=== PATIENT | female | born 1980 | race Caucasian/White ===

== ENCOUNTER 2017-04-23 21:57 | Emergency (ER) | payer BC, MEDICAID ==
[2017-04-23] MEDS ORDERED: Ketorolac 30 MG/ML SDV IVPUSH ONE (22:07)
[2017-04-23] MEDS ORDERED: Sodium Chloride 0.9% 1,000 ML IV ONE (22:08)
[2017-04-23] MEDS ORDERED: HYDROmorphone 1 MG/ML Syringe IVPUSH ONE (22:18)
[2017-04-23] MEDS ORDERED: Ondansetron 4 MG/2 ML SDV IVPUSH ONE (22:18)
--- NOTE | 2017-04-23 22:23 | EDM.PDOC ---
ED HPI GENERAL MEDICAL PROBLEM - General Chief Complaint: Abdominal Pain Stated Complaint: ABDOMINAL PAIN Time Seen by Provider: 04/23/17 22:17 Source of Information: Reports: Patient History Limitations: Reports: No Limitations - History of Present Illness INITIAL COMMENTS - FREE TEXT/NARRATIVE: Patient is a 37-year-old female who presents with lower abdominal pain 1 hour. She states she has a history of ovarian cysts and the symptoms happen quite often after her menses. Menses was 10 days ago. She states she had a previous tubal ligation. Abdominal pain is described as cramping. Denies fever, vaginal bleeding or discharge, nausea, vomiting, diarrhea, dysuria, or blood in stool. Onset: Today, Sudden Onset Date: 04/23/17 Onset Time: 21:30 Location: Reports: Abdomen Quality: Reports: Other (cramping) Severity: Moderate Improves with: Reports: None Worsens with: Reports: None Associated Symptoms: Reports: No Other Symptoms - Related Data Allergies Allergy/AdvReac Type Severity Reaction Status Date / Time No Known Drug Allergies Allergy none Verified 04/23/17 22:06 Home Meds: Home Meds . [No Known Home Meds] 04/23/17 [History] ED ROS GENERAL - Review of Systems Review Of Systems: ROS reveals no pertinent complaints other than HPI. Constitutional: Reports: No Symptoms HEENT: Reports: No Symptoms Respiratory: Reports: No Symptoms Cardiovascular: Reports: No Symptoms Endocrine: Reports: No Symptoms GI/Abdominal: Reports: Abdominal Pain. Denies: Bloody Stool, Constipation, Nausea, Vomiting : Reports: No Symptoms Musculoskeletal: Reports: No Symptoms Skin: Reports: No Symptoms Neurological: Reports: No Symptoms Psychiatric: Reports: No Symptoms Hematologic/Lymphatic: Reports: No Symptoms Immunologic: Reports: No Symptoms ED EXAM, GI/ABD - Physical Exam Exam: See Below Exam Limited By: No Limitations General Appearance: Alert, WD/WN, Mild Distress Throat/Mouth: Normal Inspection, Normal Oropharynx, No Airway Compromise Head: Atraumatic, Normocephalic Neck: Normal Inspection, Supple Respiratory/Chest: No Respiratory Distress, Lungs Clear, Normal Breath Sounds, No Accessory Muscle Use, Chest Non-Tender Cardiovascular: Regular Rate, Rhythm, No Murmur GI/Abdominal Exam: Normal Bowel Sounds, Soft, Tender (suprapubic) (Female) Exam: Deferred (per pt request) Back Exam: Normal Inspection. No: CVA Tenderness (L), CVA Tenderness (R) Extremities: Normal Inspection, No Pedal Edema Neurological: Alert, Oriented, Normal Cognition Psychiatric: Normal Affect, Normal Mood Skin Exam: Warm, Dry, Intact, Normal Color, No Rash Course - Orders/Labs/Meds Orders: Active Orders 24 hr Category Date Time Status CBC WITH AUTO DIFF [HEME] Stat Lab 04/23/17 22:06 Ordered COMPREHENSIVE METABOLIC PN,CMP [CHEM] Stat Lab 04/23/17 22:06 Ordered HCG QUALITATIVE,URINE [URCHEM] Stat Lab 04/23/17 22:06 Ordered UA W/MICROSCOPIC [URIN] Stat Lab 04/23/17 22:06 Ordered HYDROmorphone [Dilaudid] Med 04/23/17 22:18 Once 1 mg IVPUSH ONETIME ONE Ondansetron [Zofran] Med 04/23/17 22:18 Once 4 mg IVPUSH ONETIME ONE Sodium Chloride 0.9% [Normal Saline] 1,000 ml Med 04/23/17 22:08 Active IV .BOLUS Medication Orders Sodium Chloride (Normal Saline) 1,000 mls @ 999 mls/hr IV .BOLUS ONE Stop: 04/23/17 23:08 Meds: Medications Generic Name Dose Route Start Last Admin Trade Name Freq PRN Reason Stop Dose Admin Sodium Chloride 1,000 mls @ 999 mls/hr 04/23/17 22:08 Normal Saline IV 04/23/17 23:08 .BOLUS ONE Discontinued Medications Generic Name Dose Route Start Last Admin Trade Name Freq PRN Reason Stop Dose Admin Ketorolac Tromethamine 30 mg 04/23/17 22:07 Toradol IVPUSH 04/23/17 22:08 ONETIME ONE - Re-Assessments/Exams Free Text/Narrative Re-Assessment/Exam: 04/23/17 22:51 Patient afebrile, nontoxic appearing, discomfort resolved. Vital signs stable. Discussed need to follow-up with primary or vice president of procurement tomorrow for ultrasound to determine suspicion of ovarian cysts, and consideration of medication. 04/23/17 22:52 Departure - Departure Time of Disposition: 22:52 Disposition: Home, Self-Care 01 Condition: Good Clinical Impression: Abdominal pain Qualifiers: Abdominal location: lower abdomen, unspecified Qualified Code(s): R10.30 - Lower abdominal pain, unspecified - Discharge Information Instructions: Abdominal Pain, Adult, [id number], Ovarian Cyst, [id number] Referrals: Ana Araujo SAWMILL TALLY CLERK [Primary Care Provider] - Forms: ED Department Discharge Additional Instructions: Follow-up with PCP tomorrow, return to ER sooner if symptoms continue or worsen. - My Orders Last 24 Hours: My Active Orders 04/23/17 22:06 CBC WITH AUTO DIFF [HEME] Stat COMPREHENSIVE METABOLIC PN,CMP [CHEM] Stat HCG QUALITATIVE,URINE [URCHEM] Stat UA W/MICROSCOPIC [URIN] Stat 04/23/17 22:08 Sodium Chloride 0.9% [Normal Saline] 1,000 ml IV .BOLUS 04/23/17 22:18 HYDROmorphone [Dilaudid] 1 mg IVPUSH ONETIME ONE Ondansetron [Zofran] 4 mg IVPUSH ONETIME ONE - Assessment/Plan Last 24 Hours: My Active Orders 04/23/17 22:06 CBC WITH AUTO DIFF [HEME] Stat COMPREHENSIVE METABOLIC PN,CMP [CHEM] Stat HCG QUALITATIVE,URINE [URCHEM] Stat UA W/MICROSCOPIC [URIN] Stat 04/23/17 22:08 Sodium Chloride 0.9% [Normal Saline] 1,000 ml IV .BOLUS 04/23/17 22:18 HYDROmorphone [Dilaudid] 1 mg IVPUSH ONETIME ONE Ondansetron [Zofran] 4 mg IVPUSH ONETIME ONE Assessment:: Abdominal pain Plan: Follow-up with the PCP
[2017-04-23 22:42] LABS: CHLORIDE,CL 104 mmol/L (98-115); SODIUM,NA 140 mmol/L (136-145)
[2017-04-23] MEDS ORDERED: Acetaminophen/oxyCODONE 325-5 MG Tab PO ONE (22:50)
== END 2017-04-23 23:05 | disposition home or self-care (01) ==
LOC: KA.ED 21:57
DX: R10.30 Lower abdominal pain, unspecified (principal)
CPT/HCPCS: 80053; 81001; 81025; 85025; 96361; 96374; 99284; A9270; J1885; J7030

== ENCOUNTER 2018-08-04 14:05 | Emergency (ER) | payer BC, MEDICAID ==
[2018-08-04] MEDS ORDERED: Albuterol/Ipratropium 3.0-0.5 MG/3 ML Neb Soln NEB ONE (14:54)
--- NOTE | 2018-08-04 15:00 | EDM.PDOC ---
ED HPI GENERAL MEDICAL PROBLEM - General Chief Complaint: General Stated Complaint: SHORTNESS OF BREATH,COLD/COUGH SYMPTOMS, Time Seen by Provider: 08/04/18 14:41 Source of Information: Reports: Patient History Limitations: Reports: No Limitations - History of Present Illness INITIAL COMMENTS - FREE TEXT/NARRATIVE: Patient presents with cough, dyspnea, headache and malaise that started 3 days ago. It's been pretty constant but worse today. She has been pretty weak and tired also. Not aware of any fever. No history of asthma, chronic bronchitis, asthma or pneumonia. She doesn't smoke. Treatments DIRECTOR CHECK: Reports: Acetaminophen, Other (see below) Other Treatments DIRECTOR CHECK: dayquil, tylenol cold and flu - Related Data Allergies Allergy/AdvReac Type Severity Reaction Status Date / Time No Known Drug Allergies Allergy none Verified 08/04/18 14:22 Home Meds: Home Meds . 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, Polycystic Ovaries, Spontaneous Musculoskeletal History: Reports: Back Pain, Chronic Endocrine/Metabolic History: Reports: Obesity/BMI 30+ - Past Surgical History Female Surgical History: Reports: Tubal Ligation Neurological Surgical History: Reports: Lumbar Spine Social & Family History - Tobacco Use Smoking Status *Q: Former Smoker Used Tobacco, but Quit: Yes Month/Year Tobacco Last Used: quit 2001 Second Hand Smoke Exposure: Yes - Caffeine Use Caffeine Use: Reports: Soda - Alcohol Use Days Per Week of Alcohol Use: 1 Number of Drinks Per Day: 4 Total Drinks Per Week: 4 - Recreational Drug Use Recreational Drug Use: No ED ROS GENERAL - Review of Systems Review Of Systems: See Below Constitutional: Reports: Malaise, Weakness, Fatigue, Decreased Appetite. Denies : Diaphoresis HEENT: Reports: Throat Pain (moderate). Denies: Ear Pain Respiratory: Reports: Shortness of Breath, Cough. Denies: Wheezing Cardiovascular: Denies: Chest Pain, Lightheadedness, Syncope Endocrine: Reports: Fatigue GI/Abdominal: Denies: Abdominal Pain, Constipation, Diarrhea, Nausea, Vomiting : Denies: Dysuria, Flank Pain Musculoskeletal: Reports: No Symptoms Skin: Reports: Rash (A few days ago she had a rash on thighs that responded to benadryl cream and hydrocortisone and is nearly resolved). Denies: Cyanosis, Jaundice, Mottled, Pallor, Diaphoresis Neurological: Denies: Confusion, Dizziness, Headache, Seizure, Syncope, Trouble Speaking, Difficulty Walking, Change in Speech Psychiatric: Denies: Agitation, Anxiety, Confusion ED EXAM, GENERAL - Physical Exam Exam: See Below Exam Limited By: No Limitations General Appearance: Alert, WD/WN, No Apparent Distress Eye Exam: Bilateral Eye: EOMI, Normal Inspection, PERRL Ears: Normal External Exam, Normal Canal, Hearing Grossly Normal, Normal TMs Nose: Normal Inspection, No Blood Throat/Mouth: Normal Inspection, Normal Lips, Normal Oropharynx, Normal Voice, No Airway Compromise Head: Atraumatic, Normocephalic Neck: Normal Inspection, Supple, Non-Tender, Full Range of Motion Respiratory/Chest: No Accessory Muscle Use, Crackles (right lung base). No: Rhonchi, Wheezing, Stridor Cardiovascular: Regular Rate, Rhythm, No Murmur GI/Abdominal: Normal Bowel Sounds, Soft, No Distention Extremities: Normal Inspection, Normal Range of Motion Neurological: Alert, Oriented, Normal Cognition, No Motor/Sensory Deficits Psychiatric: Normal Affect, Normal Mood Skin Exam: Warm, Dry, Intact, Normal Color, No Rash Course - Vital Signs Last Recorded V/S: Last Vital Signs Temp 98.8 F 08/04/18 14:18 Pulse 93 08/04/18 17:26 Resp 28 H 08/04/18 17:26 BP 117/67 08/04/18 17:26 Pulse Ox 93 L 08/04/18 17:26 - Orders/Labs/Meds Orders: Active Orders 24 hr Category Date Time Status RT Aerosol Therapy [RC] ASDIRECTED Care 08/04/18 14:55 Ordered Chest w Cont [CT] Stat Exams 08/04/18 15:28 Ordered CULTURE BLOOD [BC] Stat Lab 08/04/18 17:33 Ordered CULTURE BLOOD [BC] Stat Lab 08/04/18 17:33 Ordered CULTURE STREP A CONFIRMATION [RM] Stat Lab 08/04/18 14:30 Results STREP SCRN A RAPID W CULT CONF [RM] Stat Lab 08/04/18 14:30 Received Blood Culture x2 Reflex Set [OM.PC] Stat Oth 08/04/18 17:33 Ordered Labs: Laboratory Tests 08/04/18 08/04/18 08/04/18 Range/Units 14:40 14:40 14:40 WBC 9.15 (5.00-10.00) 10^3/uL RBC 4.78 (3.80-5.50) 10^6/uL Hgb 13.3 (12.0-16.0) g/dL Hct 40.4 (37.0-47.0) % MCV 84.5 (82.0-92.0) fL MCH 27.8 (27.0-31.0) pg MCHC 32.9 (32.0-36.0) g/dL RDW 14.3 (11.5-14.5) % Plt Count 254 (150-400) 10^3/uL MPV 10.3 (7.4-10.4) fL Immature Gran % (Auto) 0.1 (0.0-5.0) % Neut % (Auto) 77.3 H (50.0-70.0) % Lymph % (Auto) 12.1 L (20.0-40.0) % [facility] % (Auto) 7.0 (2.0-8.0) % Eos % (Auto) 3.4 H (1.0-3.0) % Baso % (Auto) 0.1 (0.0-1.0) % Immature Gran # (Auto) 0.01 (0.00-0.50) 10^3/uL Neut # (Auto) 7.07 H (2.50-7.00) 10^3/uL Lymph # (Auto) 1.11 (1.00-4.00) 10^3/uL [facility] # (Auto) 0.64 (0.10-0.80) 10^3/uL Eos # (Auto) 0.31 H (0.10-0.30) 10^3/uL Baso # (Auto) 0.01 (0.00-0.10) 10^3/uL Sodium 141 (136-145) mmol/L Potassium 3.8 (3.3-5.3) mmol/L Chloride 104 (98-115) mmol/L Carbon Dioxide 27.1 (21.0-32.0) mmol/L Anion Gap 13.7 (5-15) mmol/L BUN 7 (6-25) mg/dL Creatinine 0.87 (0.51-1.17) mg/dL Est Cr Clr Drug Dosing 73.24 mL/min Estimated GFR (MDRD) > 60 mL/min Glucose 96 (75 - 99) mg/dL Lactic Acid 0.7 (0.4-2.0) mmol/L Calcium 8.3 L (8.7-10.3) mg/dL Total Bilirubin 0.5 (0.2-1.0) mg/dL AST 19 (15-37) U/L ALT 30 (12-78) U/L Alkaline Phosphatase 92 (46-116) IU/L C-Reactive Protein 6.3 H (0.0-0.9) mg/dL Total Protein 6.5 (6.4-8.2) g/dL Albumin 3.08 (3.00-4.80) g/dL Meds: Medications Discontinued Medications Generic Name Dose Route Start Last Admin Trade Name Freq PRN Reason Stop Dose Admin Albuterol/Ipratropium 3 ml 08/04/18 14:54 08/04/18 15:28 Duoneb 3.0-0.5 Mg/3 Ml NEB 08/04/18 14:55 3 ml ONETIME ONE Administration - Re-Assessments/Exams Free Text/Narrative Re-Assessment/Exam: 08/04/18 15:38 Influenza and strep tests are negative. WBC is 9.15, ANC 7.07, CRP 6.3. CXR shows bibasilar infiltrates and multiple bilateral pulmonary parenchymal masses or nodules. Also question of bilateral hilar adenopathy. Radiologist recommends CT for further evaluation. 08/04/18 17:40 CT was delayed due to complications with contrast administration. The CT was suboptimal per radiologist and unable to ruleout septic emboli but there is definite severe bilateral extensive upper and lower lob infiltrates with nodular central cavitating components. I discussed this with hospitalist, Dr. Xie, who accepted for transfer and requested that we draw blood cultures before we send patient. He doesn't recommend any antibiotic or blood thinner since she has been stable and slowly progressing over 2-3 days. We discussed ambulance vs riding with her and Dr. Xie feels she is stable and will leave up to me and patient preference. Discussed findings and treatment plan with patient and her . They would like to drive themselves. Patient has been stable throughout ER course. 08/04/18 18:09 Waiting director recreation back from [place] with room placement. I called them and they said they will be calling us shortly. Departure - Departure Time of Disposition: 17:39 Disposition: DC/Tfer to Acute Hospital 02 Condition: Good Clinical Impression: Hypoxemia Bilateral pneumonia Qualifiers: Pneumonia type: due to unspecified organism Lung location: unspecified part of lung Qualified Code(s): J18.9 - Pneumonia, unspecified organism - Discharge Information Referrals: PCP,Not In Area [Primary Care Provider] - Forms: ED Department Discharge - My Orders Last 24 Hours: My Active Orders 08/04/18 14:30 CULTURE STREP A CONFIRMATION [RM] Stat STREP SCRN A RAPID W CULT CONF [RM] Stat 08/04/18 14:55 RT Aerosol Therapy [RC] ASDIRECTED 08/04/18 15:28 Chest w Cont [CT] Stat 08/04/18 17:33 CULTURE BLOOD [BC] Stat CULTURE BLOOD [BC] Stat Blood Culture x2 Reflex Set [OM.PC] Stat - Assessment/Plan Last 24 Hours: My Active Orders 08/04/18 14:30 CULTURE STREP A CONFIRMATION [RM] Stat STREP SCRN A RAPID W CULT CONF [RM] Stat 08/04/18 14:55 RT Aerosol Therapy [RC] ASDIRECTED 08/04/18 15:28 Chest w Cont [CT] Stat 08/04/18 17:33 CULTURE BLOOD [BC] Stat CULTURE BLOOD [BC] Stat Blood Culture x2 Reflex Set [OM.PC] Stat
[2018-08-04 15:11] LABS: ANION GAP 13.7 mmol/L (5-15); CHLORIDE,CL 104 mmol/L (98-115); SODIUM,NA 141 mmol/L (136-145)
--- NOTE | 2018-08-04 15:23 | CR ---
[id number] RAD/RAD Chest PA And Lateral EXAM: RAD Chest PA And Lateral CLINICAL DATA: SHORTNESS OF BREATH COMPARISON: NO PREVIOUS SIMILAR EXAM IS AVAILABLE. FINDINGS: The exam is extremely abnormal. There are bibasilar infiltrates. There are multiple bilateral pulmonary parenchymal masses or nodules. CT chest with IV contrast would be helpful. There is question of bilateral hilar adenopathy. The cardiac silhouette is slightly prominent. IMPRESSION: ABNORMAL EXAM. DIFFERENTIAL DIAGNOSIS INCLUDES SEPTIC EMBOLI, ATYPICAL INFECTION, METASTATIC DISEASE AND AUTOIMMUNE PROCESSES. CONSIDER CAT SCAN. Jr Newton MD 08/04/18 [phone] Thank you for allowing us to participate in the care of your patient.
[2018-08-05] MEDS ORDERED: Iopamidol 755 Mg/ML 75 ML Bottle IVPUSH ONE (09:28)
[2018-08-05] MEDS ORDERED: Sodium Chloride 0.9% 50 ML IV SCH (09:30)
== END 2018-08-04 18:50 ==
LOC: KA.ED 14:05
DX: R09.02 Hypoxemia (principal); J18.9 Pneumonia, unspecified organism; E66.9 Obesity, unspecified; Z87.891 Personal history of nicotine dependence
CPT/HCPCS: 36415; 71046; 71260; 80053; 83605; 85025; 86140; 87040; 87081; 87430; 87804; 94640; 99285; J7050; Q9967; J7620-GY

== ENCOUNTER 2018-09-09 16:05 | Emergency (ER) | payer MEDICAID ==
--- NOTE | 2018-09-09 16:40 | EDM.PDOC ---
ED HPI GENERAL MEDICAL PROBLEM - General Chief Complaint: Upper Extremity Injury/Pain Stated Complaint: Left wrist injury Time Seen by Provider: 09/09/18 16:20 Source of Information: Reports: Patient History Limitations: Reports: No Limitations - History of Present Illness INITIAL COMMENTS - FREE TEXT/NARRATIVE: 38 YO WF presents to ER after slip and fall on ice in parking lot at work. Pt complaining of left shoulder and wrist pain. Pt denies any swelling, numbness or weakness. Pt denies any head or neck injury. Pt able to move left wrist, elbow and shoulder without deficits. Pt reports after the fall she felt fine but as the day progressed pain began to radiate from left shoulder to left wrist. Pt denies chest pain or shortness of breath. Onset: Today Duration: Hour(s): (3) Location: Reports: Upper Extremity, Left Quality: Reports: Ache Severity: Mild Improves with: Reports: Rest Worsens with: Reports: Movement Associated Symptoms: Reports: No Other Symptoms Left Wrist Pain Score (Numeric/FACES): 3 - Related Data Allergies Allergy/AdvReac Type Severity Reaction Status Date / Time No Known Drug Allergies Allergy none Verified 09/09/18 16:14 Home Meds: Home Meds Ibuprofen [Motrin] 600 mg PO Q6H #20 tab 09/09/18 [Rx] Metaxalone [Skelaxin] 800 mg PO TID PRN #15 tab 09/09/18 [Rx] traMADol [Ultram] 50 mg PO Q6H PRN #15 tab 09/09/18 [Rx] Past Medical History HEENT History: Reports: Impaired Vision Respiratory History: Reports: Other (See Below) Other Respiratory History: recent fungal pneumonia bilateral Gastrointestinal History: Reports: Chronic Constipation Genitourinary History: Reports: None 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, Polycystic Ovaries, Spontaneous Musculoskeletal History: Reports: Back Pain, Chronic Neurological History: Reports: None Endocrine/Metabolic History: Reports: Obesity/BMI 30+ - Past Surgical History Head Surgeries/Procedures: Reports: None HEENT Surgical History: Reports: None Respiratory Surgical History: Reports: None GI Surgical History: Reports: None Female Surgical History: Reports: Tubal Ligation Endocrine Surgical History: Reports: None Neurological Surgical History: Reports: Lumbar Spine Musculoskeletal Surgical History: Reports: None Social & Family History - Family History Family Medical History: Noncontributory - Caffeine Use Caffeine Use: Reports: Soda Review of Systems - Review of Systems Review Of Systems: See Below Constitutional: Reports: No Symptoms Eyes: Reports: No Symptoms Ears: Reports: No Symptoms Nose: Reports: No Symptoms Mouth/Throat: Reports: No Symptoms Respiratory: Reports: No Symptoms Cardiovascular: Reports: No Symptoms GI/Abdominal: Reports: No Symptoms Genitourinary: Reports: No Symptoms Musculoskeletal: Reports: Shoulder Pain, Arm Pain Skin: Reports: No Symptoms Neurological: Reports: No Symptoms Psychiatric: Reports: No Symptoms ED EXAM, GENERAL - Physical Exam Exam: See Below Exam Limited By: No Limitations General Appearance: Alert, WD/WN, No Apparent Distress Nose: Normal Inspection, Normal Mucosa, No Blood Throat/Mouth: Normal Inspection, Normal Lips, Normal Teeth, Normal Gums, Normal Oropharynx, Normal Voice, No Airway Compromise Head: Atraumatic, Normocephalic Respiratory/Chest: No Respiratory Distress, Lungs Clear, Normal Breath Sounds, No Accessory Muscle Use, Chest Non-Tender Cardiovascular: Normal Peripheral Pulses, Regular Rate, Rhythm, No Edema, No Gallop, No JVD, No Murmur, No Rub GI/Abdominal: Normal Bowel Sounds, Soft, Non-Tender, No Organomegaly, No Distention, No Abnormal Bruit, No Mass Back Exam: Normal Inspection, Full Range of Motion, NT Extremities: Normal Range of Motion, No Pedal Edema, Normal Capillary Refill, Arm Pain (mild wrist tenderness without swelling) Neurological: Alert, Oriented, CN II-XII Intact, Normal Cognition, Normal Gait, Normal Reflexes, No Motor/Sensory Deficits Psychiatric: Normal Affect, Normal Mood Skin Exam: Warm, Dry, Intact, Normal Color, No Rash Lymphatic: No Adenopathy Course - Vital Signs Last Recorded V/S: Last Vital Signs Temp 36.6 C 09/09/18 16:07 Pulse 89 09/09/18 16:07 Resp 20 09/09/18 16:07 BP 144/81 H 09/09/18 16:07 Pulse Ox 98 09/09/18 16:07 - Orders/Labs/Meds Orders: Active Orders 24 hr Category Date Time Status Cervical Spine 2V or 3V [CR] Stat Exams 09/09/18 16:17 Ordered Forearm 2V Lt [CR] Stat Exams 09/09/18 16:17 Ordered Shoulder Comp Lt [CR] Stat Exams 09/09/18 16:17 Ordered - Radiology Interpretation Free Text/Narrative:: cervical spine- straightening of the cervical lordosis; otherwise NAD left shoulder- NAD left forearm- NAD Departure - Departure Time of Disposition: 17:00 Disposition: Home, Self-Care 01 Condition: Good Clinical Impression: Cervical strain Qualifiers: Encounter type: initial encounter Qualified Code(s): S16.1XXA - Strain of muscle, fascia and tendon at neck level, initial encounter Wrist sprain Qualifiers: Encounter type: initial encounter Laterality: left Qualified Code(s): S63.502A - Unspecified sprain of left wrist, initial encounter Left shoulder strain Qualifiers: Encounter type: initial encounter Qualified Code(s): S46.912A - Strain of unspecified muscle, fascia and tendon at shoulder and upper arm level, left arm , initial encounter - Discharge Information Prescriptions: Ibuprofen [Motrin] 600 mg PO Q6H #20 tab Metaxalone [Skelaxin] 800 mg PO TID PRN #15 tab PRN Reason: Muscle Spasm traMADol [Ultram] 50 mg PO Q6H PRN #15 tab PRN Reason: Pain Instructions: Wrist Sprain, Adult, Cervical Strain and Sprain Rehab-SportsMed, Shoulder Pain, [id number] Referrals: Ana Araujo NP [Primary Care Provider] - Forms: ED Department Discharge Additional Instructions: 1. discharge home 2. motrin 600mg PO Q6 x 5 days 3. skelaxin 800mg PO TID PRN 4. ultram 50mg PO Q4-6 PRN pain 5. follow up in clinic if no improvement next5-7 days 6. return to ER for worsening symptoms - My Orders Last 24 Hours: My Active Orders 09/09/18 16:17 Cervical Spine 2V or 3V [CR] Stat Forearm 2V Lt [CR] Stat Shoulder Comp Lt [CR] Stat - Assessment/Plan Last 24 Hours: My Active Orders 09/09/18 16:17 Cervical Spine 2V or 3V [CR] Stat Forearm 2V Lt [CR] Stat Shoulder Comp Lt [CR] Stat Assessment:: 1. cervical strain 2. left wrist sprain 3. left shoulder sprain Plan: 1. discharge home 2. motrin 600mg PO Q6 x 5 days 3. skelaxin 800mg PO TID PRN 4. ultram 50mg PO Q4-6 PRN pain 5. follow up in clinic if no improvement next5-7 days 6. return to ER for worsening symptoms
[2018-09-09] MEDS ORDERED: Ketorolac 60 MG/2 ML SDV IM ONE (16:54)
[2018-09-09] MEDS ORDERED: traMADol 50 MG Tab PO ONE (16:54)
--- NOTE | 2018-09-09 17:34 | CR ---
[id number] RAD/RAD Cervical Spine 2-3V EXAM: CERVICAL SPINE 3 VIEWS INDICATION: Fall. COMPARISON: None. DISCUSSION: Overlying soft tissue structures limit assessment at C7 and T1. The vertebral bodies are normal in height and alignment without fracture or suspicious osseous lesion seen. The prevertebral soft tissues are normal in thickness. Mild degenerative disc disease at C4-C5 and C5-C6. Mild scattered facet degeneration. IMPRESSION: 1. Mild cervical spondylosis. Louis Mercado MD 09/09/18 [id number] Thank you for allowing us to participate in the care of your patient.
--- NOTE | 2018-09-09 17:36 | CR ---
[id number] RAD/RAD Shoulder Left 2V Min EXAM: LEFT SHOULDER 3 VIEWS INDICATION: Fall. COMPARISON: None. DISCUSSION: Mild acromioclavicular osteoarthritis. No acute fracture, dislocation or other osseous abnormality is identified. IMPRESSION: 1. No acute findings. Louis Mercado MD 09/09/18 [id number] Thank you for allowing us to participate in the care of your patient.
--- NOTE | 2018-09-09 17:36 | CR ---
[id number] RAD/RAD Forearm Left 2V EXAM: LEFT FOREARM 2 VIEWS INDICATION: Fall. COMPARISON: None. DISCUSSION: No fracture, dislocation or other osseous abnormality. IMPRESSION: 1. Negative exam. Louis Mercado MD 09/09/18 [phone] Thank you for allowing us to participate in the care of your patient.
== END 2018-09-09 17:15 | disposition home or self-care (01) ==
LOC: KA.ED 16:05
DX: S16.1XXA Strain of muscle, fascia and tendon at neck level, initial encounter (principal); S63.502A Unspecified sprain of left wrist, initial encounter; S46.912A Strain of unspecified muscle, fascia and tendon at shoulder and upper arm level, left arm, initial encounter; E66.9 Obesity, unspecified; Z98.51 Tubal ligation status; W00.0XXA Fall on same level due to ice and snow, initial encounter; Y92.481 Parking lot as the place of occurrence of the external cause; Y99.0 Civilian activity done for income or pay
CPT/HCPCS: 72040; 73030; 73090; 96372; 99283; J1885; A9270-GY

== ENCOUNTER 2021-02-05 21:02 | Emergency (ER) | payer BC, MEDICAID, OTHER ==
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
--- NOTE | 2021-02-06 09:24 | CR ---
[id number] RAD/RAD Ankle Left 3V Min EXAM: RAD Ankle Left 3V Min INDICATION: ANKLE PAIN COMPARISON: None. DISCUSSION: Diffuse soft tissue swelling. No acute fracture or dislocation is identified. IMPRESSION: 1. Soft tissue swelling. No acute osseous abnormality. Louis Mercado MD 02/06/21 [id number] Thank you for allowing us to participate in the care of your patient.
== END 2021-02-05 22:45 | disposition home or self-care (01) ==
LOC: KA.ED 21:02
DX: S93.402A Sprain of unspecified ligament of left ankle, initial encounter (principal); R60.0 Localized edema; E66.9 Obesity, unspecified; Z68.41 Body mass index [BMI] 40.0-44.9, adult; W16.622A Jumping or diving into natural body of water striking bottom causing other injury, initial encounter
CPT/HCPCS: 73610-LT; 99283; 99283-25

== ENCOUNTER 2022-03-20 01:34 | Emergency (ER) | payer OTHER ==
[2022-03-20] MEDS ORDERED: Sodium Chloride 0.9% 10 ML Syringe FLUSH PRN (01:53)
[2022-03-20] MEDS ORDERED: Ketorolac 30 MG/ML SDV IVPUSH ONE (01:55)
[2022-03-20] MEDS ORDERED: Sodium Chloride 0.9% 1,000 ML IV ONE (01:55)
[2022-03-20 02:30] LABS: ANION GAP 12.1 mmol/L (5-15)
[2022-03-20] MEDS ORDERED: Simethicone 80 MG Tab.Chew PO ONE (03:27)
== END 2022-03-20 03:45 | disposition home or self-care (01) ==
LOC: KA.ED 01:34
DX: R10.10 Upper abdominal pain, unspecified (principal); E66.9 Obesity, unspecified; Z68.42 Body mass index [BMI] 45.0-49.9, adult; Z90.49 Acquired absence of other specified parts of digestive tract
CPT/HCPCS: 36415; 76705; 80053; 81003; 82150; 83605; 83690; 85025; 96361; 96374; 99284; 99284-25; J1885; J3490; J7030

== ENCOUNTER 2022-08-20 09:40 | Emergency (ER) | payer OTHER ==
[2022-08-20] MEDS ORDERED: Penicillin G Benzathine 1,200,000 Units/2 ML Syringe IM ONE (10:01)
[2022-08-20] MEDS ORDERED: Ketorolac 30 MG/ML SDV IM ONE (10:03)
[2022-08-20] MEDS ORDERED: Amoxicillin 250 MG/5 ML Susp 150 ML Bottle PO ONE (10:20)
[2022-08-20] MEDS ORDERED: Amoxicillin 500 MG Cap PO ONE (10:23)
== END 2022-08-20 10:37 | disposition home or self-care (01) ==
LOC: KA.ED 09:40
DX: J03.90 Acute tonsillitis, unspecified (principal); B96.89 Other specified bacterial agents as the cause of diseases classified elsewhere; E66.9 Obesity, unspecified; Z68.42 Body mass index [BMI] 45.0-49.9, adult
CPT/HCPCS: 96372; 99283; A9270-GY; J1885